=== PATIENT | female | born 1995 | race Caucasian/White ===

== ENCOUNTER 2018-07-21 10:58 | Emergency (ER) | payer OTHER | END 2018-07-21 11:33 | disposition home or self-care (01) | LOC: BURERS 10:58 | DX: S09.90XA Unspecified injury of head, initial encounter (principal); S16.1XXA Strain of muscle, fascia and tendon at neck level, initial encounter; F41.9 Anxiety disorder, unspecified; M41.9 Scoliosis, unspecified; Z87.442 Personal history of urinary calculi; V43.62XA Car passenger injured in collision with other type car in traffic accident, initial encounter ==